=== PATIENT | female | born 2000 | race Caucasian/White ===

== ENCOUNTER 2020-02-15 00:02 | Day surgery (SDC) | payer OTHER ==
[2020-02-15 00:39] VITALS: BMI 28.7
--- NOTE | 2020-02-15 01:39 | PRG ---
DATE OF SERVICE: 02/15/2020 TIME OF SERVICE: 0100. PRESENTING COMPLAINT: Pelvic pain at 33 weeks' gestation. HISTORY OF PRESENT ILLNESS: The patient was transferred in from [place]. She was seen in the emergency room there and evaluated for pelvic pain at 33 weeks. Her evaluation there revealed a negative urinalysis and unremarkable workup. She was transferred here because of need for monitoring services. OBSTETRIC/GYNECOLOGIC HISTORY: 33 weeks, G2, P1. Patient sees [facility] [employer] in [place]. No antepartum records available. History of prior x1 at term. No history of labor. PAST MEDICAL HISTORY: None. PAST SURGICAL HISTORY: None. ALLERGIES: DENIES. MEDICATIONS: vitamins. SOCIAL HISTORY: Denies tobacco, alcohol, or IV drug use. FAMILY HISTORY: Noncontributory. REVIEW OF SYSTEMS: Noncontributory. PHYSICAL EXAMINATION: GENERAL: White female, resting comfortably with occasional pelvic pain, especially when she moves. VITAL SIGNS: Temperature 98.4, pulse 85, respirations 18, blood pressure 124/82. HEENT: Within normal limits. LUNGS: Clear to auscultation bilaterally. HEART: Regular rate and rhythm. No CVA tenderness noted. Fundal height 33. FHTs 150s to 160s. Uterus soft, discomfort with palpation but no palpable contractions. EXTREMITIES: No clubbing, cyanosis, or edema. Vaginal exam reveals no discharge of cervix that is closed, long, and high, cephalic, very posterior. Prolonged monitoring carried out which revealed FHTs 150s to 160s, baseline. Positive accelerations, no decelerations, and no contractions noted on tocometer. IMPRESSION: Discomforts of , pelvic pain in female pelvis at 33 weeks' gestation. Out of town [facility] [employer]. PLAN: Reassurance. Okay to use heating pad and [id number] Tylenol for pain. ER precautions. Discharge home. Keep scheduled followup with [employer] in [place]. Job ID: [id number]
[2020-02-15] MEDS ORDERED: FLU VACC QS2020-21(6MOS UP)/PF 60 MCG/0.5 ML SYRINGE IM ONE (21:00)
== END 2020-02-15 01:30 | disposition home or self-care (01) ==
LOC: L&D/OP 00:02
DX: O26.893 Other specified pregnancy related conditions, third trimester (principal); R10.2 Pelvic and perineal pain; Z3A.33 33 weeks gestation of pregnancy
CPT/HCPCS: 99282

== ENCOUNTER 2020-03-08 17:14 | Day surgery (SDC) | payer OTHER ==
[2020-03-08 17:46] VITALS: BP 134/93
[2020-03-08 17:47] VITALS: BMI 28.3
[2020-03-08] MEDS ORDERED: hydrALAZINE 20 MG/ML VIAL SLOW IVP PRN (18:01)
[2020-03-08 18:30] LABS: Bacteria/HPF None Seen HPF (None Seen); Bilirubin Negative (Negative); Blood, Urine Negative (Negative); Clarity Clear (Clear); Glucose, Urine (Dipstick) Normal (Negative); Ketone, Urine 40 mg/dL (Negative); Leukocyte Negative Leu/uL (Negative); Mucous/LPF 1+ LPF (<2+); Nitrite Negative (Negative); Protein, Urine (Dipstick) Negative (Neg-Trace); RBC/HPF 0-3 HPF (0-3); Specific Gravity, Urine 1.018 (1.002-1.036); Squamous Epithelial 0-3 HPF (0-3); Urobilinogen Normal mg/dL (Less than 2); WBC/HPF 0-3 HPF (0-3)
[2020-03-08] MEDS ORDERED: Ondansetron PF 4 MG/2 ML Vial IVP PRN (18:41)
[2020-03-08] MEDS ORDERED: Ondansetron PF 4 MG/2 ML Vial ONE (18:41)
[2020-03-08 18:42] LABS: Amnisure Test No Membranes Rupture (No Rupture)
--- NOTE | 2020-03-08 18:43 | PDOC.LDHP ---
Labor and Delivery H&P Chief complaint: contractions, abdominal pain HPI: 19yo presented to the ED in [place] for evaluation of contractions, lower abdominal pain, and perceived loss of fluid. She has associated nausea. She states these symptoms started around 12:00pm today. She sees a doctor in [place] for care. Her next appointment with her Ob provider is Tuesday. She reports no complications during this . She has a history of asthma and PCOS. Current gestational age (weeks): 36 (1d) Due date: 04/04/20 Dating criteria: last menstrual period Grav: 2 Para: 1 Current complications: none Abnormal US findings: No Past Medical History: Asthma PCOS Current medications: none Previous surgical history: none Allergies/Adverse Reactions: Allergies Allergy/AdvReac Type Severity Reaction Status Date / Time No Known Allergies Allergy Verified 03/08/20 17:40 Social history: none - Physical Exam Vital signs reviewed and normal: yes General: NAD Heart: RRR Lungs: CTAB Abdomen: gravid Extremeties: no edema FHT: category 1 [place] contractions every: irritable pattern - Vaginal Exam cm dilated: 3 Effacement: 50% Station: -2 - OB Labs Blood type: unknown RH: unknown Antibody Screen: unknown HIV: unknown RPR: unknown HEPSAg: unknown 1 hour GCT: unknown GBS: unknown - Assessment contractions Vaginal discharge, suspect vaginal candidiasis - Plan -: Will observe on L&D. Initial check per RN was 3cm dilated. We will give 1L IV fluids, tylenol and zofran. Exam consistent with yeast infection. Amnisure and VP3 collected. UA collected. UPDATE: - UA was negative for infection - Exam consistent with yeast, VP3 was negative. However, due to exam findings we sent yeast medication. - Contractions were irregular and in a irritable pattern. They resolved with IV fluids. - FHT was category 1 - Amnisure was negative. Sterile speculum exam was consistent with candidiasis and there was no pooling of amniotic fluid. Plan to d/c home. Keep f/u elena Tuesday03/10/20. Labor precautions given. Recommend staying closer to hospital that she anticipates delivering at, which is in [place]. Plan discussed with Dr. Koch attending. Arjun KRAMER PGY2 Addendum - Attending - Attending Attestation Date/Time: 03/08/20 2150 I personally evaluated the patient and discussed the management with Dr. Fritz. I agree with the History, Examination, Assessment and Plan documented above.
[2020-03-08 18:45] LABS: Amnisure Internal Control QC ACCEPTABLE (ACCEPTABLE)
[2020-03-08] MEDS ORDERED: Acetaminophen 500 MG TAB PO SCH (18:45)
[2020-03-08] MEDS ORDERED: Lactated Ringer's 1,000 ML IV SCH (18:45)
[2020-03-08] MEDS ORDERED: Butorphanol Tartrate 1 MG/ML VIAL SLOW IVP SCH (20:00)
== END 2020-03-08 20:15 | disposition home health service (06) ==
LOC: L&D/OP 17:14
DX: O47.03 False labor before 37 completed weeks of gestation, third trimester (principal); O99.891 Other specified diseases and conditions complicating pregnancy; N89.8 Other specified noninflammatory disorders of vagina; R10.30 Lower abdominal pain, unspecified; O99.513 Diseases of the respiratory system complicating pregnancy, third trimester; J45.909 Unspecified asthma, uncomplicated; O99.283 Endocrine, nutritional and metabolic diseases complicating pregnancy, third trimester; E28.2 Polycystic ovarian syndrome; Z3A.36 36 weeks gestation of pregnancy
CPT/HCPCS: 84112; 87480; 87510; 87660; J0595; J2405